=== PATIENT | male | born 1970 | race Caucasian/White ===

== ENCOUNTER → 2019-10-06 09:44 | Outpatient (CLI) | payer BC, SELFPAY ==
--- NOTE | ~2019-10-06 | MR_ITS ---
EXAMINATION: MR lumbar spine wo/w con DATE: 10/06/2019 10:38 INDICATION: Sciatica with chronic low back pain now radiating to the right leg over the past year. TECHNIQUE: Magnetic resonance imaging (MRI) of the lumbar spine was performed without and with 15 mL Multihance intravenous contrast. Sequences included sagittal T2-weighted FSE, sagittal T2-weighted FS FSE, and sagittal and axial T1-weighted FSE. Postcontrast sequences included axial T2-weighted FSE, sagittal T1-weighted FSE, and axial and sagittal T1-weighted FS FSE. COMPARISON: None FINDINGS: 1-2 mm retrolisthesis L3 on L4 and 3 mm retrolisthesis L4 on L5. Vertebral body heights are normal. S evere disc height loss at L5-S1. Mild to moderate disc height loss at L2-L3 through L4-L5. There are annular fissures at each of these levels. Fibrovascular degenerative endplate changes at both sides o f L4-L5 and L5-S1 and along the anterior endplates inferiorly at L1 and superiorly at T11 and T12. Ma rrow signal is otherwise normal. The conus medullaris terminates at L1. There is normal signal in the caudal spinal cord. No abnormally enhancing cord lesions. There is mild enhancing synovitis at the p eriphery of several of the lumbar facet joints most prominent on the left at L1-L2 and L3-L4 and bila terally at L4-L5. Paravertebral soft tissues are unremarkable. No other abnormally enhancing lesions identified. The following disc levels are specifically discussed: T12-L1: The disc does not extend beyond the endplate margin. There is mild bilateral facet joint oste oarthritis. There is no neural foraminal stenosis. There is no central canal stenosis. L1-L2: The disc does not extend beyond the endplate margin. There is mild right and mild to moderate left facet joint osteoarthritis. There is no neural foraminal stenosis. There is no central canal mildred nosis. L2-L3: Diffuse disc bulge. There is mild right and mild to moderate left facet joint osteoarthritis. There is mild to moderate bilateral neural foraminal stenosis. There is mild central canal stenosis. Mild narrowing at the lateral recesses, left greater than right. L3-L4: Diffuse disc bulge. There is moderate bilateral facet joint osteoarthritis. There is moderate left and mild to moderate right neural foraminal stenosis. There is mild central canal stenosis with moderate narrowing of the left and right lateral recesses. L4-L5: Disc is bulging with superimposed central to left paracentral disc extrusion with disc materia l extending up to 5 mm inferior to the level of the superior endplate of L5. There is hypertrophy of the ligamentum flavum. There is mild left and mild to moderate right facet joint osteoarthritis. The re is moderate left and mild to moderate right neural foraminal stenosis. There is moderate central c anal stenosis as well as of the left and right lateral recesses. L5-S1: Posterior disc osteophyte complex. There is moderate left and mild to moderate right facet alcon nt osteoarthritis. Postoperative change of prior left hemilaminotomy. There is moderate left and mild to moderate right neural foraminal stenosis. There is mild central canal stenosis. Narrowing of the lateral recesses, mild on the left and moderate on the right. IMPRESSION: 1. Moderate lumbar spondylosis. Reviewed, dictated and finalized at location A.
[2019-10-06 10:09] LABS: Estimated Glomerular Filt Rate > 60
== END ==
PROVIDERS: Visit Provider Internal Medicine
DX: M54.31 Sciatica, right side (principal); M47.896 Other spondylosis, lumbar region
CPT/HCPCS: 36415; 72158; A9577

== ENCOUNTER 2020-01-17 08:40 | Outpatient (CLI) | payer BC, SELFPAY ==
--- NOTE | 2020-01-17 11:00 | NEURO_ITS ---
Patient Number: [id number] Impression: # Complains of right lower extremity pain. # Normal nerve conduction study. # Normal needle/EMG exam. # Clinical correlation recommended. Nerve Conduction Studies Anti Sensory Summary Table Stim Site NR Peak (ms) P-T Amp (?V) Site1 Site2 Delta-P (ms) Dist (cm) Moreno (m/s) Right Sup Fibular Anti Sensory (Ant Lat Mall) 14 cm 3.3 10.4 14 cm Ant Lat Mall 3.3 16.0 48 Right Sural Anti Sensory (Lat Mall) Calf 3.4 5.4 Calf Lat Mall 3.4 16.0 47 Motor Summary Table Stim Site NR Onset (ms) O-P Amp (mV) Site1 Site2 Delta-0 (ms) Dist (cm) Moreno (m/s) Right Peroneal Motor (Vastus Med) Ankle 4.8 2.2 Popit Ankle 7.5 36.0 48 Popit 12.3 1.8 Right Tibial Motor (Abd Diaz Brev) Ankle 4.5 7.3 Knee Ankle 9.0 41.0 46 Knee 13.5 5.1 F Wave Studies NR F-Lat (ms) L-R F-Lat (ms) Right Peroneal (Mrkrs) (EDB) 53.15 Right Tibial (Mrkrs) (Abd Hallucis) 52.69 EMG Side Muscle Nerve Root Ins Act Fibs Amp Dur Recrt Comment Right AntTibialis Dp Br Fibular L4-5 Nml Nml Nml Nml Nml Right Gastroc Tibial S1-2 Nml Nml Nml Nml Nml Right Fibularis Long Sup Br Fibular L5-S1 Nml Nml Nml Nml Nml Right Flex Dig Long Tibial L5-S2 Nml Nml Nml Nml Nml Right Ext Dig Brev Dp Br Fibular L5, S1 Nml Nml Nml Nml Nml Right QuadratusFem QuadFemoris L4-5, S1 Nml Nml Nml Nml Nml MTDD
== END 2020-01-17 08:41 | disposition home or self-care (01) ==
PROVIDERS: PCP Internal Medicine; Visit Provider Neurological Surgery
DX: M47.816 Spondylosis without myelopathy or radiculopathy, lumbar region (principal); M51.36 Other intervertebral disc degeneration, lumbar region; M48.061 Spinal stenosis, lumbar region without neurogenic claudication
CPT/HCPCS: 95886; 95908

== ENCOUNTER → 2021-06-22 08:06 | Outpatient (CLI) | payer BC, SELFPAY ==
--- NOTE | ~2021-06-22 | MR_ITS ---
EXAMINATION: MR cervical spine wo con EXAM DATE: 06/22/2021 09:08 INDICATION: Neck pain neck pain radiating to head x6mos, no trauma, no ca . TECHNIQUE: Multi-sequential, multiplanar MR images of the cervical spine were obtained without contra st. Axial T2, axial T2 MERGE sequence. Sagittal T1, T2, T2 fat saturation images also obtained. Com parison is made to prior examination from 03/26/2017. FINDINGS: There is mild to moderate loss of the disc height from C4 through C7. There is 2 mm wilfrido listhesis C3 on C4. The vertebral bodies are otherwise aligned. The spinal cord signal intensity and intrinsic morphology is normal. Cervicomedullary junction is normal in appearance. Some edema in the odontoid process probably from C1-2 osteoarthritis. Paraspinal soft tissue is unremarkable. . Level by level evaluation: C2-C3: Disc does not extend beyond the endplate margin. Uncovertebral joint arthropathy: None. Facet joint arthropathy: Mild bilateral. Neural foraminal stenosis: No stenosis. Central canal stenosis: No stenosis. C3-C4: Disc does not extend beyond the endplate margin. Uncovertebral joint arthropathy: Mild to moderate right, mild left. Facet joint arthropathy: Severe right, mild to moderate left. Neural foraminal stenosis: Moderate to severe right, no left. Central canal stenosis: No stenosis. C4-C5: There is a mild diffuse disc bulge. Uncovertebral joint arthropathy: Moderate to severe right, moderate left. Facet joint arthropathy: Moderate to severe right, moderate left. Neural foraminal stenosis: Moderate to severe right, mild to moderate left. Central canal stenosis: Mild. C5-C6: There is a mild diffuse disc bulge. Uncovertebral joint arthropathy: Moderate to severe bilateral. Facet joint arthropathy: Moderate bilateral. Neural foraminal stenosis: Moderate bilateral. Central canal stenosis: Mild. C6-C7: There is a mild diffuse disc bulge. Uncovertebral joint arthropathy: Severe left, moderate to severe right. Facet joint arthropathy: Mild to moderate bilateral. Neural foraminal stenosis: Moderate to severe left, mild to moderate right. Central canal stenosis: Mild. C7-T1: There is a mild diffuse disc bulge. Uncovertebral joint arthropathy: Moderate bilateral. Facet joint arthropathy: Mild to moderate bilateral. Neural foraminal stenosis: Moderate left, mild to moderate right. Central canal stenosis: No stenosis. IMPRESSION: Significant mid cervical arthropathy, neural foraminal stenosis as detailed above. Reviewed, dictated and finalized at location A. [employer]
== END ==
PROVIDERS: Visit Provider Internal Medicine
DX: M54.2 Cervicalgia (principal)
CPT/HCPCS: 72141